=== PATIENT | male | born 1990 | race American Indian/Alaskan Native ===

== ENCOUNTER 2018-04-26 12:04 | Emergency (ER) | payer SELFPAY ==
[2018-04-26 12:29] VITALS: BP 102/69
--- NOTE | 2018-04-26 14:20 | Emergency Department Report ---
Chief Complaint: Medical Clearance Stated Complaint: PAIN BEHIND STERNUM Time Seen by Provider: 04/26/18 14:06 - HPI History of Present Illness: Mr. Magallon presents with several concerns of a primary care nature. He has had intermittent chest wall pain with movement for one month. Cold hands for some time, he is concerned for anemia. He has had weight loss. I recommended medical examination in a primary care clinic. He is a healthy 27 yo male without acute medical emergency. No threat of limb loss. - Exam Vital Signs: Vital Signs 04/26/18 12:24 Temperature 98.9 F Pulse Rate 68 Respiratory 16 Rate Blood Pressure 102/69 O2 Sat by Pulse 100 Oximetry MSE screening note: Focused history and physical exam performed. Due to findings the following was ordered: ED Disposition for MSE Clinical Impression: Chest wall pain, Cold hands, Weight loss Disposition: DC-01 TO HOME OR SELFCARE Is pt being admited?: No Does the pt Need Aspirin: No Condition: Stable Referrals: [facility] [Outside] - 3-5 Days Time of Disposition: 14:20
== END 2018-04-26 14:26 | disposition home or self-care (01) ==
LOC: ED 12:04
DX: R07.89 Other chest pain (principal); R20.9 Unspecified disturbances of skin sensation; R63.4 Abnormal weight loss
CPT/HCPCS: 99281